=== PATIENT | male | born 1980 | race Caucasian/White ===

== ENCOUNTER 2016-11-06 06:02 | Observation (INO) | payer MEDICAID, OTHER ==
[2016-11-06] VITALS (7 sets, daily range): BP systolic 112–138; BP diastolic 64–81; PULSE 67–93; RESP 16–18; TEMP 97.8–98.1; O2SAT 97–99
[~2016-11-06] VITALS: Ht 170.2 cm; Wt 92.3 kg
[~2016-11-06 06:02] MED LIST: ACIP20TA19; CLIN150 PO; HYDR-3133 PO; PRED20 PO
[2016-11-06] MEDS ORDERED: cefTRIAXone INJ 1,000 MG in SODIUM CHLORIDE 0.9% INJ 100 ML IV ONE (06:45)
[2016-11-06] MEDS ORDERED: SODIUM CHLOR 0.9% 1000 ML INJ 1,000 ML IV ONE (06:45)
[2016-11-06] MEDS ORDERED: KETOROLAC TROMETHAMINE 30 MG/ML (IVP) VIAL IV PUSH ONE (06:45)
[2016-11-06 07:08] LABS: BASOPHIL % 0.3 % (0.0-2.0); EOSINOPHIL # 0.2 TH/MM3 (0-0.4); EOSINOPHIL % 2.9 % (0.0-4.0); HEMATOCRIT 45.8 % (39.0-51.0); HEMO FLAGS DIFF FINAL; LYMPH % 19.2 % (9.0-44.0); LYMPHOCYTE # 1.2 TH/MM3 (1.0-4.8); MEAN CELL VOLUME 83.3 FL (80.0-100.0); MEAN CORPUSCULAR HGB CONC 33.6 % (32.0-36.0); MONO % 11.2 % (0.0-8.0); NEUT % 66.4 % (16.0-70.0); PLATELET COUNT 328 TH/MM3 (150-450); RED CELL DISTRIBUTION WIDTH 12.4 % (11.6-17.2); WHITE BLOOD COUNT 6.1 TH/MM3 (4.0-11.0)
[2016-11-06 07:19] LABS: ANION GAP 8 MEQ/L (5-15); BICARBONATE 28.7 MEQ/L (21.0-32.0); BLOOD UREA NITROGEN 14 MG/DL (7-18); CHLORIDE 98 MEQ/L (98-107); GLOMERULAR FILTRATION RATE 87 ML/MIN (>89); POTASSIUM 4.1 MEQ/L (3.5-5.1); SODIUM (NA) 135 MEQ/L (136-145)
[2016-11-06 07:21] LABS: ALKALINE PHOSPHATASE 99 U/L (45-117); ALT (GPT) 38 U/L (12-78); AST (GOT) 19 U/L (15-37); TOTAL BILIRUBIN ADULT 0.5 MG/DL (0.2-1.0)
--- NOTE | 2016-11-06 07:31 | PD ---
HPI Chief Complaint: Skin Problem Time Seen by Provider: 06:16 Travel History International Travel<30 days: No Contact w/Intl Traveler<30days: No Traveled to known affect area: No History of Present Illness HPI The patient is a 36 year old male who presents to the [facility] emergency department with a history of reportedly having a problem with recurrent chancroid since 2001. He reports that initially it was occurring once every 1- 2 years, however recently over the last year he has had 3-4 episodes of outbreaks. He reports that normally it is a rash that develops in the genital area and buttock area. However, since Friday his symptoms have been slightly different. In addition to having lesions in the genital area and gluteal full, the patient also has vesicle formation between his fingers, on his toes, and areas of ulceration on his lips and inside his mouth. He reports that it is very painful. He reports that his usual pain medicine for chronic back pain has not been helping. The patient reports that approximately 3 weeks ago he was seen by an infectious disease doctor regarding this. He reports that a thorough workup was done including laboratory studies, cultures of the area. The patient reports that all of the testing came back negative. He reports he was tested for HIV and syphilis which was negative. He reports that the infectious disease doctor thought that it may be related to a yeast or fungal infection. However, he did treat the patient with an injection of 250 mg of IM Rocephin at that time and the symptoms resolved. The patient reports that it recurred again on Friday and he did call his infectious disease doctor. The infectious disease doctor started him on oral Lamisil and topical Lamisil. The patient reports that the symptoms weren't improving and then on Friday he went to a local urgent care center and was given azithromycin 1 g by mouth 1. He reports that the symptoms have not resolved. The patient reports that he did have diarrhea on Friday and Friday, however this resolved. He reports that he had loose stools 3-4 times per day. He denies having any blood in his stool. The patient denies having any new sexual partners. The patient's partner is currently at the bedside. The patient denies any recent fevers, cough, congestion, neck pain, chest pain, shortness of breath, abdominal pain, vomiting , urinary symptoms, or neurologic symptoms. PFSH Past Medical History Narrative Medical The patient's past medical history is reportedly significant for chronic back pain, history of chancroid, history of MRSA skin infections, history of HSV-2, history of Caban's esophagitis Diminished Hearing: No Medical other: Yes (BARRETTS ESOPHAGUS) Integumentary: Yes (CHANKROID, HERPES TYPE II) Past Surgical History Narrative Surgical The patient's past surgical history is significant for an appendectomy. Appendectomy: Yes Social History Alcohol Use: Yes (2X/WK) Tobacco Use: No Substance Use: No Allergies-Medications (Allergen,Severity, Reaction): Coded Allergies: Sulfa (Verified Allergy, Intermediate, HIVES, 11/06/16) Doxycycline (Verified Allergy, Unknown, 11/06/16) Reported Meds & Prescriptions Reported Meds & Active Scripts Active Cleocin (Clindamycin HCl) 150 Mg Cap 1 Tab PO Q6 10 Days Atarax (Hydroxyzine HCl) 25 Mg Tab 25 Mg PO Q8HPRN Deltasone (Prednisone) 20 Mg Tab 20 Mg PO BID Reported Aciphex (Rabeprazole Sodium) 20 Mg Tabdr 0 UNKNOWN DOSE Review of Systems Except as stated in HPI: all other systems reviewed are Neg General / Constitutional: No: Fever Eyes: No: Visual changes HENT: Positive: Sore Throat, No: Headaches Cardiovascular: No: Chest Pain or Discomfort Respiratory: No: Shortness of Breath Gastrointestinal: Positive: Diarrhea, Changes in Bowel Habits, No: Nausea, Vomiting, Abdominal Pain, Hematochezia, Constipation, Indigestion, Loss of Appetite Genitourinary: No: Dysuria Musculoskeletal: No: Pain Skin: Positive Rash Neurologic: No: Weakness Psychiatric: No: Depression Endocrine: No: Polydipsia Hematologic/Lymphatic: No: Easy Bruising Physical Exam Narrative General: The patient is a well-developed well-nourished male, uncomfortable appearing on exam. Head and Neck exam: Head is normocephalic atraumatic. Eyes: Pupils are equal round and reactive to light. Nose: Midline septum with pink mucous membranes Mouth: On examination of the external aspect of his mouth he has areas of superficial ulceration on the upper and lower lips. Dentition unremarkable. Moist mucus membranes. Posterior oropharynx is erythematous. The patient is noted to have on the hard and soft palate mucosa superficial ulceration and desquamation. No tonsillar hypertrophy. Uvula midline. Airway patent. Neck: No palpable lymphadenopathy. No nuchal rigidity. No thyromegaly. Cardiovascular: Regular rate and rhythm without murmurs, gallops, or rubs. Lungs: Clear to auscultation bilaterally. No wheezes, rhonchi, or rales. Abdomen: Soft, without tenderness to palpation in all 4 quadrants of the abdomen. No guarding, rebound, or rigidity. Normal bowel sounds are audible. Extremities: No clubbing, cyanosis, or edema. 2+ pulses in all 4 extremities. Back: No spinous process tenderness to palpation. No costovertebral angle tenderness to palpation. Neurologic Exam: Grossly nonfocal. Skin Exam: On examination of the areas between the patient's fingers the patient is noted to have superficial vesicle formation with an erythematous base on the right hand, and bilateral dorsum of the feet. On examination of the patient's genital area the patient has desquamation with yellow discharge noted, however the patient reports that he applied Vaseline to the area as well as Lamisil. The patient is noted on examination of the buttock area to have between the buttocks in the gluteal fold an area of diffuse erythema. A wound culture of the scrotum was done. Data Data Last Documented VS Vital Signs Date Time Temp Pulse Resp B/P Pulse Ox O2 Delivery O2 Flow Rate FiO2 11/06/16 06:17 93 16 11/06/16 06:04 98.0 138/81 98 Orders Complete Blood Count With Diff (11/06/16 06:32) Comprehensive Metabolic Panel (11/06/16 06:32) C-Reactive Protein (Crp) (11/06/16 06:32) Lipase (11/06/16 06:32) Urinalysis - C+S If Indicated (11/06/16 06:32) Westergren Sedimentation Rate (11/06/16 06:32) Wound Culture And Gram Stain (11/06/16 06:32) Iv Access Insert/Monitor (11/06/16 06:32) Ecg Monitoring (11/06/16 06:32) Oximetry (11/06/16 06:32) Sodium Chlor 0.9% 1000 Ml Inj (Ns 1000 M (11/06/16 06:45) Ketorolac Inj (Toradol Inj) (11/06/16 06:45) Ceftriaxone Inj (Rocephin Inj) (11/06/16 06:45) Labs Laboratory Tests Test 11/06/16 06:55 White Blood Count 6.1 TH/MM3 Red Blood Count 5.50 MIL/MM3 Hemoglobin 15.4 GM/DL Hematocrit 45.8 % Mean Corpuscular Volume 83.3 FL Mean Corpuscular Hemoglobin 28.0 PG Mean Corpuscular Hemoglobin 33.6 % Concent Red Cell Distribution Width 12.4 % Platelet Count 328 TH/MM3 Mean Platelet Volume 7.0 FL Neutrophils (%) (Auto) 66.4 % Lymphocytes (%) (Auto) 19.2 % Monocytes (%) (Auto) 11.2 % Eosinophils (%) (Auto) 2.9 % Basophils (%) (Auto) 0.3 % Neutrophils # (Auto) 4.0 TH/MM3 Lymphocytes # (Auto) 1.2 TH/MM3 Monocytes # (Auto) 0.7 TH/MM3 Eosinophils # (Auto) 0.2 TH/MM3 Basophils # (Auto) 0.0 TH/MM3 CBC Comment DIFF FINAL Differential Comment Sodium Level 135 MEQ/L Potassium Level 4.1 MEQ/L Chloride Level 98 MEQ/L Carbon Dioxide Level 28.7 MEQ/L Anion Gap 8 MEQ/L Blood Urea Nitrogen 14 MG/DL Creatinine 0.97 MG/DL Estimat Glomerular Filtration 87 ML/MIN Rate Random Glucose 108 MG/DL Calcium Level 9.4 MG/DL Total Bilirubin 0.5 MG/DL Aspartate Amino Transf 19 U/L (AST/SGOT) Alanine Aminotransferase 38 U/L (ALT/SGPT) Alkaline Phosphatase 99 U/L C-Reactive Protein 8.30 MG/DL Total Protein 9.0 GM/DL Albumin 4.1 GM/DL Lipase 136 U/L [facility] Medical Decision Making Medical Screen Exam Complete: Yes Emergency Medical Condition: Yes Medical Record Reviewed: Yes Differential Diagnosis Aly-Shoaib syndrome, versus autoimmune disorder such as pemphigoid, staph scalded skin syndrome. Narrative Course During the course of the patients emergency department visit, the patients history, examination, and differential diagnosis were reviewed with the patient. The patient had IV access obtained and blood work sent for analysis. The patient is placed on a monitoring manager with oximetry and blood pressure monitoring. A sedimentation rate was ordered. A wound culture was ordered. The patient was provided normal saline 1 L IV fluid bolus, Rocephin 1 g IV. The patients laboratory studies are pending at the conclusion of my shift. The patient's case was checked out to Dr. Richardson for disposition. Jaky Reyez MD Nov 06, 2016 07:31
--- NOTE | 2016-11-06 07:48 | PD ---
Physical Exam Narrative Received sign out from previous team to follow up labs and disposition. Please refer to Dr. Reyez's note for further details. 36yo M with PMH significant for chronic back pain, HSV 2, chancroid here with worsening skin lesions on his genitals. He has also been having blisters on his hands and feet that is new. Pt also with ulcerations in his upper and lower lips along with desquamation in upper hard palate. Pt is nontoxic appearing. Labs reviewed, no leukocytosis. ESR 8. CMP unremarkable. C- reactive protein is elevated at 8.30. Pt given ceftriaxone, NS IVF and toradol by previous team. Pt reevaluated at bedside and still with significant pain. Will give morphine 4mg IV. Wound culture was sent. Given the oral mucosa involvement, I am concern with Aly Shoaib syndrome although I know have an inciting medication. Will admit pt for observation for pain control and evaluation by infectious disease. ID consult placed. Discussed with Dr. Mas and accepted to medicine service. Data Data Last Documented VS Vital Signs Date Time Temp Pulse Resp B/P Pulse Ox O2 Delivery O2 Flow Rate FiO2 11/06/16 08:02 17 11/06/16 07:30 81 11/06/16 07:30 98.1 120/77 99 Room Air Orders Complete Blood Count With Diff (11/06/16 06:32) Comprehensive Metabolic Panel (11/06/16 06:32) C-Reactive Protein (Crp) (11/06/16 06:32) Lipase (11/06/16 06:32) Urinalysis - C+S If Indicated (11/06/16 06:32) Westergren Sedimentation Rate (11/06/16 06:32) Wound Culture And Gram Stain (11/06/16 06:32) Iv Access Insert/Monitor (11/06/16 06:32) Ecg Monitoring (11/06/16 06:32) Oximetry (11/06/16 06:32) Sodium Chlor 0.9% 1000 Ml Inj (Ns 1000 M (11/06/16 06:45) Ketorolac Inj (Toradol Inj) (11/06/16 06:45) Ceftriaxone Inj (Rocephin Inj) (11/06/16 06:45) Morphine Inj (Morphine Inj) (11/06/16 08:00) Admit Order (Ed Use Only) (11/06/16 08:08) Consult Infectious Disease (11/06/16 ) Labs Laboratory Tests Test 11/06/16 11/06/16 06:54 06:55 Erythrocyte Sedimentation Rate 8 mm/hr White Blood Count 6.1 TH/MM3 Red Blood Count 5.50 MIL/MM3 Hemoglobin 15.4 GM/DL Hematocrit 45.8 % Mean Corpuscular Volume 83.3 FL Mean Corpuscular Hemoglobin 28.0 PG Mean Corpuscular Hemoglobin 33.6 % Concent Red Cell Distribution Width 12.4 % Platelet Count 328 TH/MM3 Mean Platelet Volume 7.0 FL Neutrophils (%) (Auto) 66.4 % Lymphocytes (%) (Auto) 19.2 % Monocytes (%) (Auto) 11.2 % Eosinophils (%) (Auto) 2.9 % Basophils (%) (Auto) 0.3 % Neutrophils # (Auto) 4.0 TH/MM3 Lymphocytes # (Auto) 1.2 TH/MM3 Monocytes # (Auto) 0.7 TH/MM3 Eosinophils # (Auto) 0.2 TH/MM3 Basophils # (Auto) 0.0 TH/MM3 CBC Comment DIFF FINAL Differential Comment Sodium Level 135 MEQ/L Potassium Level 4.1 MEQ/L Chloride Level 98 MEQ/L Carbon Dioxide Level 28.7 MEQ/L Anion Gap 8 MEQ/L Blood Urea Nitrogen 14 MG/DL Creatinine 0.97 MG/DL Estimat Glomerular Filtration 87 ML/MIN Rate Random Glucose 108 MG/DL Calcium Level 9.4 MG/DL Total Bilirubin 0.5 MG/DL Aspartate Amino Transf 19 U/L (AST/SGOT) Alanine Aminotransferase 38 U/L (ALT/SGPT) Alkaline Phosphatase 99 U/L C-Reactive Protein 8.30 MG/DL Total Protein 9.0 GM/DL Albumin 4.1 GM/DL Lipase 136 U/L [facility] Supervised Visit with SELVIN: No Diagnosis Primary Impression: Skin lesions Admitting Information Admitting Physician Requests: Soniya Gautam DO Nov 06, 2016 07:48
[2016-11-06] MEDS ORDERED: MORPHINE SULFATE 4 MG/ML INJ IV PUSH ONE (08:00)
[2016-11-06 09:31] LABS: BLOOD, URINE NEG (NEG); GLUCOSE,URINE NEG (NEG); KETONE, URINE NEG (NEG); NITRITE,URINE NEG (NEG); PH, URINE 6.5 (5.0-8.5); URINE COLOR YELLOW (YELLW/STRAW)
[2016-11-06 09:32] LABS: COMMENT (UR) CULT NOT INDICATED; CULTURE IF INDICATED CULT NOT INDICATED
[2016-11-06] MEDS ORDERED: SODIUM CHLORIDE 0.9% FLUSH 5 ML FLUSH FLUSH PRN (10:00)
[2016-11-06] MEDS ORDERED: NALOXONE HCL 0.4 MG/ML AMP IV PRN (10:00)
[2016-11-06] MEDS: SODIUM CHLOR 0.9% 1000 ML INJ 1,000 ML IV SCH ×2 (10:23→19:49)
[2016-11-06] MEDS: KETOROLAC TROMETHAMINE 30 MG/ML (IVP) VIAL IVP PRN ×2 (12:06→23:09)
[2016-11-06] MEDS: MORPHINE SULFATE 4 MG/ML INJ IV PRN ×3 (12:07→21:05)
[2016-11-06] MEDS ORDERED: OXYC15TA PO (13:31)
[2016-11-06] MEDS ORDERED: SOMA350T PO (13:31)
[2016-11-06] MEDS ORDERED: OMEP40CA2 PO (13:31)
[2016-11-06] MEDS ORDERED: ZANT300T PO (13:31)
[2016-11-06 15:23] LABS: RHEUMATOID FACTOR TRIGGER LESS THAN 10.0 IU/ML (0.0-14.9)
--- NOTE | 2016-11-06 17:15 | HHI.HP ---
[facility] No Primary Care Physician Admission Diagnosis Skin lesions Diagnoses: Chief Complaint: Skin lesion, with severe pain Travel History International Travel<30 Days: No Contact w/Intl Traveler <30 Da: No Traveled to Known Affected Are: No History of Present Illness 36 years old male with history of HSV 2 presented to the ED with the worsening complain of chancroidd who did have it 12 years ago was since 2001. Patient has been on acyclovir before, he was being worked up for HIV which was negative, however patient stated he never had the lesions as bad as now. This time patient is having spread vesicular lesion of different ages on the penis and scrotum with greenish drainage, patient stated dates extremely painful , also he had erythematous macular lesion all over the body on the chest legs, on the big toes, some on the palm and the sole, he does have herpetic lesion on the lips as well as the palate and under the tongue in the oral mucosa, patient also mentioned some lesions perianal. Patient is not able to tolerate solid food only cold liquid, no fever or chills no abdominal pain diarrhea or constipation no other neurologic symptom. The patient has been following up with infectious disease specialist who recently put him on Lamisil topical and systematic for what it thought to be fungus. I discussed with the ED physician, patient looked too sick to be sent home, he will need parenteral IV fluid with pain medication, with ID consultation Review of Systems Other All 10 systems reviewed and was positive for what is mentioned in history of present illness otherwise negative Past Family Social History Past Medical History chancroid, history of MRSA skin infections, history of HSV-2, history of Caban 's esophagitis Allergies: Coded Allergies: Sulfa (Verified Allergy, Intermediate, HIVES, 11/06/16) Doxycycline (Verified Allergy, Unknown, 11/06/16) Family History Reviewed noncontributory to the current lesion No history of autoimmune disease Social History Drinks occasionally no tobacco or illicit drug abuse Physical Exam Vital Signs Vital Signs Date Time Temp Pulse Resp B/P Pulse Ox O2 Delivery O2 Flow Rate FiO2 11/06/16 16:30 17 11/06/16 15:00 97.8 81 16 122/81 99 Room Air 11/06/16 13:06 16 11/06/16 12:07 98.1 81 16 130/76 99 Room Air 11/06/16 09:03 97.8 77 17 119/76 99 Room Air 11/06/16 08:02 17 11/06/16 07:52 17 11/06/16 07:30 81 17 11/06/16 07:30 98.1 78 17 120/77 99 Room Air 11/06/16 07:00 16 99 Room Air 11/06/16 06:17 93 16 11/06/16 06:04 98.0 93 16 138/81 98 Physical Exam - - GENERAL: This is a well-nourished, well-developed patient, in no apparent distress. SKIN: Multiple vesicular lesion on the penis and scrotum of different ages mostly wet with some greenish drainage, also erythematous macular lesion spread on the toes between the wet, some on the palm and soles HEAD: Atraumatic. Normocephalic. EYES: Pupils equal round and reactive. Extraocular motions intact. No scleral icterus. ENT: Nose without bleeding, or drainage, Airway patent. Multiple herpetic-like ulcers on the lips and the palate and under the tongue and oral mucosa NECK: Trachea midline. Supple CARDIOVASCULAR: Regular rate and rhythm without murmurs, gallops, or rubs. RESPIRATORY: Fair air entry bilaterally. No wheezes, rales, or rhonchi. GASTROINTESTINAL: Abdomen soft, non-tender, nondistended. Positive bowel sounds MUSCULOSKELETAL: Extremities without clubbing, cyanosis, or edema. Pedal pulses appreciated NEUROLOGICAL: Awake and alert. Moves all extremity. Normal speech.no focal neurological deficit Laboratory Laboratory Tests Test 11/06/16 11/06/16 11/06/16 11/06/16 06:54 06:55 09:00 14:30 Erythrocyte Sedimentation Rate 8 White Blood Count 6.1 Red Blood Count 5.50 Hemoglobin 15.4 Hematocrit 45.8 Mean Corpuscular Volume 83.3 Mean Corpuscular Hemoglobin 28.0 Mean Corpuscular Hemoglobin 33.6 Concent Red Cell Distribution Width 12.4 Platelet Count 328 Mean Platelet Volume 7.0 Neutrophils (%) (Auto) 66.4 Lymphocytes (%) (Auto) 19.2 Monocytes (%) (Auto) 11.2 Eosinophils (%) (Auto) 2.9 Basophils (%) (Auto) 0.3 Neutrophils # (Auto) 4.0 Lymphocytes # (Auto) 1.2 Monocytes # (Auto) 0.7 Eosinophils # (Auto) 0.2 Basophils # (Auto) 0.0 CBC Comment DIFF FINAL Differential Comment Sodium Level 135 Potassium Level 4.1 Chloride Level 98 Carbon Dioxide Level 28.7 Anion Gap 8 Blood Urea Nitrogen 14 Creatinine 0.97 Estimat Glomerular Filtration 87 Rate Random Glucose 108 Calcium Level 9.4 Total Bilirubin 0.5 Aspartate Amino Transf 19 (AST/SGOT) Alanine Aminotransferase 38 (ALT/SGPT) Alkaline Phosphatase 99 C-Reactive Protein 8.30 Total Protein 9.0 Albumin 4.1 Lipase 136 Urine Color YELLOW Urine Turbidity CLEAR Urine pH 6.5 Urine Specific Belcher 1.007 Urine Protein NEG Urine Glucose (UA) NEG Urine Ketones NEG Urine Occult Blood NEG Urine Nitrite NEG Urine Bilirubin NEG Urine Urobilinogen LESS THAN 2.0 Urine Leukocyte Esterase NEG Urine WBC LESS THAN 1 Microscopic Urinalysis Comment CULT NOT INDICATED Rheumatoid Factor Screen NEGATIVE Rheumatoid Factor Titer Date/Time Procedure Status Source Growth 11/06/16 14:30 Gram Stain Received Fluid Other Pending 11/06/16 14:30 Body Fluid Culture Received Fluid Other Pending 11/06/16 14:30 Aerobic Blood Culture Received Blood Peripheral Pending 11/06/16 14:30 Anaerobic Blood Culture Received Blood Peripheral Pending 11/06/16 06:55 Gram Stain - Final Resulted Wound Shoulder 11/06/16 06:55 Wound Culture Resulted Wound Shoulder Pending Result Diagram: 11/06/16 0655 11/06/16 0655 Assessment and Plan Assessment and Plan 36 years old male admitted with Severe diffuse herpetic-like skin lesions on the genital and oropharynx surface rule out herpes simplex flareup versus Aly-Shoaib syndrome versus Behet disease related lesion Systemic illness due to above History of HSV History of Caban's syndrome Plan: We'll admit for observation She was given 1 dose of Rocephin in the ED Iv fluid, pain management with morphine Magic mouthwash Consult ID ESR, CRP, blood culture Per the patient previously has been tested for HIV, will probably need to repeat HIV testing Will need to repeat HSV titers Further workup per ID Discussed Condition With Patient and his Georges Mas MD Nov 06, 2016 17:15
--- NOTE | 2016-11-06 18:26 | PD.ID.CON ---
History of Present Illness Service Infectious Disease Consult Requested By Reason for Consult Evaluation and Mment of recurrent oral, skin and genital lesions ? scrotal cellulitis. ? Behcets syndrome. Primary Care Physician No Primary Care Physician Diagnoses: History of Present Illness is a 36 year old CM with PMHx of HSV2, Chancroid in 2001 who is admitted with history of recurrent oral lesions, skin lesions, genital ulcers, rectal area ulcers. Patient has been on acyclovir before but stopped it after response. He reports having seen an ID physician in [place] who has done an extensive workup on him and has been treating him for fungal etiology although lesions are herpetic or ulcerative type with areas of pemphigoid skin lesions. Patient reports this time lesions have spread are vesicular of different ages on the penis and scrotum with greenish drainage, patient stated these are extremely painful, also he had erythematous macular lesion all over the body on the chest legs, on the big toes, some on the palm and the sole, he does have herpetic lesion on the lips as well as the palate and under the tongue in the oral mucosa, patient also mentioned some lesions perianal. Patient is not able to tolerate solid food only cold liquid, no fever or chills no abdominal pain diarrhea or constipation no other neurologic symptom. The patient has been following up with infectious disease specialist who recently put him on Lamisil topical and systematic for what it thought to be fungus.Patient looked too sick to be sent home, he was admitted for parenteral IV fluid, pain medication, with ID consultation. Pertinent positives and negatives: Denies any joint pains Denies vision change or floaters etc. Denies any chronic diarrhea although he had diarrhea prior to admission. No FHX of autoimmune diseases, HLA B27 positivity. No FHX of Crohns or Ulcerative Colitis. No FHX of chronic skin infections. ID consulted for evaluation and Mment of recurrent oral, skin and genital lesions ? infectious plus scrotal secondary bacterial cellulitis. Review of Systems Constitutional: DENIES: Diaphoretic episodes, Fatigue, Fever, Weight gain, Weight loss, Chills, Dizziness, Change in appetite, Night Sweats Endocrine: DENIES: Heat/cold intolerance, Polydipsia, Polyuria, Polyphagia Eyes: DENIES: Blurred vision, Diplopia, Eye inflammation, Eye pain, Vision loss , Photosensitivity, Double Vision Ears, nose, mouth, throat: COMPLAINS OF: Oral lesions, Throat pain, DENIES: Tinnitus, Hearing loss, Vertigo, Nasal discharge, Hoarseness, Ear Pain, Running Nose, Epistaxis, Sinus Pain, Toothache, Odynophagia Respiratory: DENIES: Apneas, Cough, Snoring, Wheezing, Hemoptysis, Sputum production, Shortness of breath Cardiovascular: DENIES: Chest pain, Palpitations, Syncope, Dyspnea on Exertion , PND, Lower Extremity Edema, Orthopnea, Claudication Gastrointestinal: COMPLAINS OF: Diarrhea, Difficulty Swallowing, DENIES: Abdominal pain, Black stools, Bloody stools, Constipation, Nausea, Vomiting, Anorexia Genitourinary: COMPLAINS OF: Penile Discharge, Testicular Swelling, DENIES: Sexual dysfunction, Urinary frequency, Urinary incontinence, Urgency, Hematuria , Dysuria, Nocturia, Testicular Pain Musculoskeletal: DENIES: Joint pain, Muscle aches, Stiffness, Joint Swelling, Back pain, Neck pain Integumentary: COMPLAINS OF: Rash, DENIES: Abnormal pigmentation, Nail changes , Pruritus Hematologic/lymphatic: DENIES: Bruising, Lymphadenopathy Immunologic/allergic: DENIES: Eczema, Urticaria Neurologic: DENIES: Abnormal gait, Headache, Localized weakness, Paresthesias, Seizures, Speech Problems, Tremor, Poor Balance Psychiatric: DENIES: Anxiety, Confusion, Mood changes, Depression, Hallucinations, Agitation, Suicidal Ideation, Homicidal Ideation, Delusions Past Family Social History Allergies: Coded Allergies: Sulfa (Verified Allergy, Intermediate, HIVES, 11/06/16) Doxycycline (Verified Allergy, Unknown, 11/06/16) *MDRO Multi-Drug Resistant Organism (Verified Adverse Reaction, Unknown, MRSA, 11/07/16) MRSA (wounds) - 01/10/11 & 03/30/11 Past Medical History chancroid, history of MRSA skin infections, history of HSV-2, history of Caban's esophagitis Past Surgical History Appendectomy Reported Medications Reported Meds & Active Scripts Active Reported Oxycodone (Oxycodone HCl) 15 Mg Tab 15 Mg PO 5 TIMES A DAY Omeprazole 40 Mg Cap 40 Mg PO HS Zantac (Ranitidine HCl) 300 Mg Tab 300 Mg PO HS Soma (Carisoprodol) 350 Mg Tab 350 Mg PO TID Active Ordered Medications Current Medications Medications (Trade) Dose Ordered Sig/Carmen Route Start Time Stop Time Status Last Admin (NS 1000 ml Inj) ,000 ml @ 100 mls/hr Q10H IV 11/06/16 09:49 11/06/16 10:23 (NS Flush) 2 ml UNSCH PRN FLUSH 11/06/16 10:00 (NS Flush) 2 ml BID FLUSH 11/06/16 21:00 11/06/16 21:03 (Toradol Inj) 15 mg Q6H PRN IVP 11/06/16 10:00 11/09/16 09:59 11/06/16 12:06 (Morphine Inj) 2 mg Q4H PRN IV 11/06/16 12:00 11/06/16 21:05 (Narcan Inj) 0.4 mg UNSCH PRN IV 11/06/16 10:00 (Protonix) 40 mg HS PO 11/06/16 21:00 11/06/16 21:37 Ondansetron HCl 4 mg 4 mg Q6HR PRN IV PUSH 11/06/16 21:15 Fluconazole/ Sodium Chloride 100 ml @ 100 mls/hr Q24H IV 11/06/16 23:00 Piperacillin Sod/ Tazobactam Sod 100 ml @ 200 mls/hr Q8H IV 11/07/16 00:00 (Cleocin Inj/NS Inj) 106 ml @ 212 mls/hr Q8H IV 11/06/16 22:00 Family History No FHX of autoimmune diseases, HLA B27 positivity. No FHX of Crohns or Ulcerative Colitis. No FHX of chronic skin infections. Social History Lives with his . Has 4 young children. Occ alcohol No IVDA Physical Exam Vital Signs Vital Signs Date Time Temp Pulse Resp B/P Pulse Ox O2 Delivery O2 Flow Rate FiO2 11/06/16 16:30 17 11/06/16 15:00 97.8 81 16 122/81 99 Room Air 11/06/16 13:06 16 11/06/16 12:07 98.1 81 16 130/76 99 Room Air 11/06/16 09:03 97.8 77 17 119/76 99 Room Air 11/06/16 08:02 17 11/06/16 07:52 17 11/06/16 07:30 81 17 11/06/16 07:30 98.1 78 17 120/77 99 Room Air 11/06/16 07:00 16 99 Room Air 11/06/16 06:17 93 16 11/06/16 06:04 98.0 93 16 138/81 98 Physical Exam GENERAL: This is a well-nourished, well-developed patient, in no apparent distress. SKIN: Multiple bullous, pemphigoid lesions. Areas of nodular non tender lesions on palms of hand. Multiple skin lesions papular, bullous on limbs. HEAD: Atraumatic. Normocephalic. No temporal or scalp tenderness. EYES: Pupils equal round and reactive. Extraocular motions intact. No scleral icterus. No injection or drainage. No lesions in or near canthi of eye. Vision ok. ENT: Nose without bleeding, purulent drainage or septal hematoma. Throat without erythema, tonsillar hypertrophy or exudate. Uvula midline. Airway patent. Oral mucosa at lips and palate with ulcerations noted, few vesicles. NECK: Trachea midline. Supple, nontender, no meningeal signs. CARDIOVASCULAR: HS audible. No murmur appreciated. RESPIRATORY: Clear to auscultation. Breath sounds equal bilaterally. No wheezes , rales, or rhonchi. GASTROINTESTINAL: Abdomen soft, non-tender, nondistended. MUSCULOSKELETAL: Extremities without clubbing, cyanosis, or edema. No joint tenderness, effusion, or edema noted. No calf tenderness. Negative Homans sign bilaterally. NEUROLOGICAL: Awake and alert. Grossly non focal Genitourinary area: penile as well as scrotal discharge : yellow green discharge , erythema, minimal induration noted.The area of induration extends to the buttock area. Psych: ? flat affect. IV line sites with no e/o infection. Laboratory Laboratory Tests Test 11/06/16 11/06/16 11/06/16 11/06/16 06:54 06:55 09:00 14:30 Erythrocyte Sedimentation Rate 8 White Blood Count 6.1 Red Blood Count 5.50 Hemoglobin 15.4 Hematocrit 45.8 Mean Corpuscular Volume 83.3 Mean Corpuscular Hemoglobin 28.0 Mean Corpuscular Hemoglobin 33.6 Concent Red Cell Distribution Width 12.4 Platelet Count 328 Mean Platelet Volume 7.0 Neutrophils (%) (Auto) 66.4 Lymphocytes (%) (Auto) 19.2 Monocytes (%) (Auto) 11.2 Eosinophils (%) (Auto) 2.9 Basophils (%) (Auto) 0.3 Neutrophils # (Auto) 4.0 Lymphocytes # (Auto) 1.2 Monocytes # (Auto) 0.7 Eosinophils # (Auto) 0.2 Basophils # (Auto) 0.0 CBC Comment DIFF FINAL Differential Comment Sodium Level 135 Potassium Level 4.1 Chloride Level 98 Carbon Dioxide Level 28.7 Anion Gap 8 Blood Urea Nitrogen 14 Creatinine 0.97 Estimat Glomerular Filtration 87 Rate Random Glucose 108 Calcium Level 9.4 Total Bilirubin 0.5 Aspartate Amino Transf 19 (AST/SGOT) Alanine Aminotransferase 38 (ALT/SGPT) Alkaline Phosphatase 99 C-Reactive Protein 8.30 Total Protein 9.0 Albumin 4.1 Lipase 136 Urine Color YELLOW Urine Turbidity CLEAR Urine pH 6.5 Urine Specific [place] 1.007 Urine Protein NEG Urine Glucose (UA) NEG Urine Ketones NEG Urine Occult Blood NEG Urine Nitrite NEG Urine Bilirubin NEG Urine Urobilinogen LESS THAN 2.0 Urine Leukocyte Esterase NEG Urine WBC LESS THAN 1 Microscopic Urinalysis Comment CULT NOT INDICATED Rheumatoid Factor Screen NEGATIVE Rheumatoid Factor Titer Date/Time Procedure Status Source Growth 11/06/16 14:30 Gram Stain Worksheet Fluid Other Pending 11/06/16 14:30 Body Fluid Culture Worksheet Fluid Other Pending 11/06/16 14:30 Aerobic Blood Culture Received Blood Peripheral Pending 11/06/16 14:30 Anaerobic Blood Culture Received Blood Peripheral Pending 11/06/16 06:55 Gram Stain - Final Resulted Wound Shoulder 11/06/16 06:55 Wound Culture Resulted Wound Shoulder Pending Result Diagram: 11/06/16 0655 11/06/16 0655 Assessment and Plan Assessment and Plan Recurrent oral lesions, skin lesions, genital and rectal lesions. DDX: Herpetic flare with secondary bacterial infection. Possible secondary fungal infection as well) Behcets syndrome (early stages may not have joint involvement but can have pemphigoid skin lesions) No new medications started does not appear to be Trevin Shoaib syndrome. Scrotal cellulitis Rule out STDs (GC, chlamydia, syphilis, chancroid) Prior h/o chancroid (the current clinical picture cannot be explained in entirety based on chancroid) Prior h/o Herpes genitalis. No prior herpes oral lesions. Recs: Start Zosyn IV Start Clinda IV Start Diflucan IV. Nystatin swish swash Start valtrex ( will assess clinical response after addition of valtrex) May need skin biopsy Check rheum workup. Check ANCA Check HLA B57 Check HSV Check RPR Check GC and Chlamydia Check scrotal wound cultures. Check hepatitis profile and HIV antibody. No steroids unless cleared by ID. Consult urology: scrotal and penile lesions rule out deeper tissue infection CT A/P with contrast: cannot do US scrotum pelvis. Concern for scrotal cellulitis and deeper tissue infection. Follow cultures Follow clinically. Case d.w patient and in detail. Discussed possibilities. Contact isolation (active discharge from genital and rectal area as well as prior h/o MRSA) Deepthi Rosa MD Nov 06, 2016 18:26
[2016-11-06 19:20] LABS: CHLAMYDIA PCR NOT DETECTED (NOT DETECT); NEISSERIA PCR NOT DETECTED (NOT DETECT)
[2016-11-06] MEDS ORDERED: DIATRIZOATE MEGLUM/DIATRIZOATE SOD 9 ML CUP PO ONE (20:30)
[2016-11-06] MEDS: SODIUM CHLORIDE 0.9% FLUSH 5 ML FLUSH FLUSH SCH (21:03)
[2016-11-06] MEDS ORDERED: ONDANSETRON HCL 4 MG/2 ML VIAL IV PUSH PRN (21:15)
[2016-11-06] MEDS: PANTOPRAZOLE SOD 40 MG DELAYED RELEASE TAB PO SCH (21:37)
[2016-11-06] MEDS: CLINDAMYCIN INJ 900 MG in SODIUM CHLORIDE 0.9% INJ 100 ML IV SCH (23:10)
[2016-11-06] MEDS: FLUCONAZOLE 200 MG PREMIX BAG 100 ML IV SCH (23:56)
[2016-11-06] MEDS: valACYclovir HCL 500 MG TAB PO SCH (23:56)
[2016-11-07] MEDS ORDERED: IOHEXOL 350 MG/ML 10 ML VIAL (for RAD DIAG) IV ONE (00:54)
--- NOTE | 2016-11-07 01:04 | RADRPT ---
EXAM DATE/TIME: 11/07/2016 00:49 [facility] COMPARISON: No previous studies available for comparison. INDICATIONS : Abdomen pain - evaluate for abscess. IV CONTRAST: 68 cc Omnipaque 350 (iohexol) IV ORAL CONTRAST: Prescribed oral contrast ingested. RADIATION DOSE: 20.87 CTDIvol (mGy) MEDICAL HISTORY : Herpes. Caban's esphagus SURGICAL HISTORY : None. ENCOUNTER: Initial ACUITY: 2 days PAIN SCALE: 0/10 LOCATION: Abdomen TECHNIQUE: Volumetric scanning of the abdomen and pelvis was performed. Using automated exposure control and ad justment of the mA and/or kV according to patient size, radiation dose was kept as low as reasonably achievable to obtain optimal diagnostic quality images. FINDINGS: LOWER LUNGS: The visualized lower lungs are clear. LIVER: Homogeneous density without lesion. There is no dilation of the biliary tree. No calcified gallston es. SPLEEN: Normal size without lesion. PANCREAS: Within normal limits. KIDNEYS: Normal in size and shape. There is no mass, stone or hydronephrosis. ADRENAL GLANDS: Within normal limits. VASCULAR: There is no aortic aneurysm. BOWEL/MESENTERY: Small hiatal hernia. The small bowel, and colon demonstrate no acute abnormality. There is no free i ntraperitoneal air or fluid. ABDOMINAL WALL: Within normal limits. RETROPERITONEUM: There is no lymphadenopathy. BLADDER: No wall thickening or mass. REPRODUCTIVE: Within normal limits. INGUINAL: There is no lymphadenopathy or hernia. MUSCULOSKELETAL: Within normal limits for patient age. CONCLUSION: Benign CT appearance of the abdomen and pelvis. No evidence of abscess as questioned. Piotr Jaime MD on November 07, 2016 at 0:59 Board Certified Radiologist. This report was verified electronically.
[2016-11-07] MEDS: MORPHINE SULFATE 4 MG/ML INJ IV PRN ×5 (01:17→20:12)
[2016-11-07] MEDS: PIPERACIL-TAZO 4.5 GM PREMIX 100 ML IV SCH ×3 (01:47→17:30)
[2016-11-07] MEDS: CLINDAMYCIN INJ 900 MG in SODIUM CHLORIDE 0.9% INJ 100 ML IV SCH ×3 (05:33→22:50)
[2016-11-07 05:35] VITALS: BP 133/88; PULSE 68; RESP 21; TEMP 98.7; O2SAT 98
[2016-11-07] MEDS: valACYclovir HCL 500 MG TAB PO SCH ×3 (06:00→22:50)
[2016-11-07 08:00] VITALS: BP 131/79; PULSE 62; RESP 18; TEMP 98.1; O2SAT 98
[2016-11-07] MEDS: SODIUM CHLOR 0.9% 1000 ML INJ 1,000 ML IV SCH ×3 (08:00→23:08)
[2016-11-07] MEDS: KETOROLAC TROMETHAMINE 30 MG/ML (IVP) VIAL IVP PRN ×2 (08:35→17:30)
[2016-11-07] MEDS: SODIUM CHLORIDE 0.9% FLUSH 5 ML FLUSH FLUSH SCH ×2 (09:00→20:11)
[2016-11-07] MEDS: NYSTAT/DIPHENHY/LIDO MOUTHWASH (Adult) 120ML SWISH-SWAL SCH ×4 (09:57→22:51)
[2016-11-07 12:00] VITALS: BP 128/70; PULSE 58; RESP 20; TEMP 98.1; O2SAT 100
[2016-11-07 15:24] VITALS: BP 119/72; PULSE 68; RESP 18; TEMP 97.5; O2SAT 97
--- NOTE | 2016-11-07 16:38 | HHI.PR ---
Subjective Remarks Follow up on systemic dermato- mucosal spread lesion in patient with history of HSV Patient stated his pain and discomfort is slightly better today He feels his inside part of his lips are swollen with soreness of his palate Objective Vitals Vital Signs Date Time Temp Pulse Resp B/P Pulse Ox O2 Delivery O2 Flow Rate FiO2 11/07/16 15:24 97.5 68 18 119/72 97 11/07/16 12:00 98.1 58 20 128/70 100 11/07/16 09:59 18 11/07/16 08:00 98.1 62 18 131/79 98 11/07/16 05:40 18 11/07/16 05:35 98.7 68 21 133/88 98 11/06/16 20:00 98.0 67 18 112/64 97 I/O 11/06/16 11/06/16 11/06/16 11/07/16 11/07/16 11/07/16 07:00 15:00 23:00 07:00 15:00 23:00 Intake Total 200 ml Output Total 400 ml Balance -200 ml Intake Oral 200 ml Output Urine Total 400 ml # Voids 1 2 # Bowel Movements 0 Result Diagram: 11/06/16 0655 11/06/16 0655 Objective Remarks - - GENERAL: This is a well-nourished, well-developed patient, in no apparent distress. SKIN: Multiple vesicular lesion on the penis and scrotum of different ages mostly wet with some greenish drainage, also erythematous macular lesion spread on the toes between the wet, some on the palm and soles HEAD: Atraumatic. Normocephalic. EYES: Pupils equal round and reactive. Extraocular motions intact. No scleral icterus. ENT: Nose without bleeding, or drainage, Airway patent. Multiple herpetic-like ulcers on the lips and the palate and under the tongue and oral mucosa NECK: Trachea midline. Supple CARDIOVASCULAR: Regular rate and rhythm without murmurs, gallops, or rubs. RESPIRATORY: Fair air entry bilaterally. No wheezes, rales, or rhonchi. GASTROINTESTINAL: Abdomen soft, non-tender, nondistended. Positive bowel sounds MUSCULOSKELETAL: Extremities without clubbing, cyanosis, or edema. Pedal pulses appreciated NEUROLOGICAL: Awake and alert. Moves all extremity. Normal speech.no focal neurological deficit A/P Assessment and Plan 36 years old male admitted with Severe diffuse herpetic-like skin lesions on the genital and oropharynx surface rule out herpes simplex flareup with superimposed infection bacterial versus fungal / unlikely Aly-Shoaib syndrome /rule out underlying Behet disease related lesion Systemic illness due to above History of HSV History of Caban's syndrome Plan: Appreciate ID consultation Checking, GC, chlamydia , HIV, HSV 1 and 2, MARK, HLA B-17, ANCA, RPR, hepatitis panel Started Zosyn and clindamycin and Diflucan iv per ID Nystatin swish and swallow Start Valtrex Consult urology Scrotum wound culture ESR, CRP, blood culture Iv fluid, pain management with morphine Magic mouthwash Georges Mas MD Nov 07, 2016 16:38
[2016-11-07 20:07] VITALS: BP 121/86; PULSE 78; RESP 21; TEMP 98.2; O2SAT 97
--- NOTE | 2016-11-07 20:37 | PD.CONS ---
HPI Service Urology Consult Requested By Reason for Consult Scrotal cellulitis, lesions Primary Care Physician No Primary Care Physician Diagnosis: History of Present Illness 36yo male with history of Herpes and multiple skin lesions/ulcers in the scrotum and penis. Patient has had vesicular lesions on his penis and scrotum in the past, however currently reports significant pain with drainage throughout his entire scrotum. He has also developed lesions within his mouth that are painful. He denies any recent sexual contact or STDs. Denies any fevers , chills, N/V. He denies any lower urinary tract symptoms, no dysuria, no hematuria. Review of Systems ROS Limitations: Clinical Condition Constitutional: DENIES: Fever Endocrine: DENIES: Polyuria Eyes: DENIES: Blurred vision, Vision loss Ears, nose, mouth, throat: DENIES: Hearing loss Respiratory: DENIES: Cough Cardiovascular: DENIES: Chest pain Gastrointestinal: DENIES: Abdominal pain Genitourinary: DENIES: Urgency, Hematuria, Dysuria Musculoskeletal: DENIES: Joint pain Integumentary: COMPLAINS OF: Abnormal pigmentation, Rash Hematologic/lymphatic: COMPLAINS OF: Bruising Immunologic/allergic: COMPLAINS OF: Eczema Neurologic: DENIES: Abnormal gait Psychiatric: DENIES: Anxiety, Confusion Past Family Social History Past Medical History chancroid, history of MRSA skin infections, history of HSV-2, history of Caban 's esophagitis Past Surgical History No previous surgeries Reported Medications Reported Meds & Active Scripts Active Reported Oxycodone (Oxycodone HCl) 15 Mg Tab 15 Mg PO 5 TIMES A DAY Omeprazole 40 Mg Cap 40 Mg PO HS Zantac (Ranitidine HCl) 300 Mg Tab 300 Mg PO HS Soma (Carisoprodol) 350 Mg Tab 350 Mg PO TID Allergies: Coded Allergies: Sulfa (Verified Allergy, Intermediate, HIVES, 11/06/16) Doxycycline (Verified Allergy, Unknown, 11/06/16) *MDRO Multi-Drug Resistant Organism (Verified Adverse Reaction, Unknown, MRSA, 11/07/16) MRSA (wounds) - 01/10/11 & 03/30/11 Active Ordered Medications Current Medications Medications (Trade) Dose Ordered Sig/Carmen Route Start Time Stop Time Status Last Admin (NS 1000 ml Inj) 1,000 ml @ 100 mls/hr Q10H IV 11/06/16 09:49 11/07/16 08:00 (NS Flush) 2 ml UNSCH PRN FLUSH 11/06/16 10:00 (NS Flush) 2 ml BID FLUSH 11/06/16 21:00 11/07/16 20:11 (Toradol Inj) 15 mg Q6H PRN IVP 11/06/16 10:00 11/09/16 09:59 11/07/16 17:30 (Morphine Inj) 2 mg Q4H PRN IV 11/06/16 12:00 11/07/16 20:12 (Narcan Inj) 0.4 mg UNSCH PRN IV 11/06/16 10:00 (Protonix) 40 mg HS PO 11/06/16 21:00 11/06/16 21:37 Ondansetron HCl 4 mg 4 mg Q6HR PRN IV PUSH 11/06/16 21:15 Fluconazole/ Sodium Chloride 100 ml @ 100 mls/hr Q24H IV 11/06/16 23:00 11/06/16 23:56 Piperacillin Sod/ Tazobactam Sod 100 ml @ 200 mls/hr Q8H IV 11/07/16 00:00 11/07/16 17:30 (Cleocin Inj/NS Inj) 106 ml @ 212 mls/hr Q8H IV 11/06/16 22:00 11/07/16 15:39 (Magic Mouthwash Adult Liq) 10 ml QID SWISH-SWAL 11/07/16 09:00 11/07/16 18:00 (Valtrex) 500 mg Q8HR PO 11/06/16 23:00 11/07/16 15:33 Family History Reviewed noncontributory to the current lesion No history of autoimmune disease Social History Drinks occasionally no tobacco or illicit drug abuse Physical Exam Vital Signs Vital Signs Date Time Temp Pulse Resp B/P Pulse Ox O2 Delivery O2 Flow Rate FiO2 11/07/16 20:07 98.2 78 21 121/86 97 11/07/16 15:24 97.5 68 18 119/72 97 11/07/16 12:00 98.1 58 20 128/70 100 11/07/16 09:59 18 11/07/16 08:00 98.1 62 18 131/79 98 11/07/16 05:40 18 11/07/16 05:35 98.7 68 21 133/88 98 Physical Exam GENERAL: This is a well-nourished, well-developed patient, in no apparent distress. SKIN: Multiple mouth ulcers HEAD: Atraumatic. Normocephalic. EYES: Pupils equal round and reactive. No scleral icterus. No injection or drainage. ENT: Nose without bleeding, purulent drainage Airway patent. NECK: Trachea midline. CARDIOVASCULAR: Normal pulses, extremities well perfused RESPIRATORY: Nonlabored, equal chest rise GASTROINTESTINAL: Abdomen nondistended. : Scrotal erythema throughout with weeping appearance, tender to palpation, multiple small ulcer noted on penile shaft and glans. Scrotum tender to palpation. Erythema spreads to anus with well demarcated area around anus and scrotum. No evidence of scrotal abscess, no drainable fluid collection. No evidence of nathanael's gangrene. MUSCULOSKELETAL: Extremities without clubbing, cyanosis, or edema NEUROLOGICAL: Awake and alert. Motor and sensory grossly within normal limits. Normal speech. Laboratory Date/Time Procedure Status Source Growth 11/06/16 14:30 Gram Stain - Final Resulted Fluid Other 11/06/16 14:30 Body Fluid Culture - Preliminary Resulted Fluid Other NO GROWTH IN 24 HOURS. 11/06/16 14:30 Aerobic Blood Culture - Preliminary Resulted Blood Peripheral NO GROWTH IN 1 DAY 11/06/16 14:30 Anaerobic Blood Culture - Preliminary Resulted Blood Peripheral NO GROWTH IN 1 DAY Result Diagram: 11/06/16 0655 11/06/16 0655 Imaging Last 72 hours Impressions Abdomen/Pelvis CT 11/07/16 0000 Signed Impressions: Service Date/Time: October 00:49 - CONCLUSION: Benign CT appearance of the abdomen and pelvis. No evidence of abscess as questioned. Piotr Jaime MD Assessment and Plan Problem List: (1) Skin lesions ICD Code: L98.9 Status: Acute Assessment and Plan 36 yo male with erythemetous and painful scrotal and penile lesions -Unclear etiology for his skin leions -No obvious site of infection. No drainable abcess. No evidence of nathanael's gangrene -CT scan reviewed with no obvious abnormalities -Differential includes Cellulities vs Bechet's disease vs autoimmune process, less likely contact dermatitis. -Agree with ID evaluation -No surgical intervention indicated at this time -Please call with questions Dmitri Del Castillo MD Nov 07, 2016 20:37
[2016-11-07] MEDS: PANTOPRAZOLE SOD 40 MG DELAYED RELEASE TAB PO SCH (21:00)
--- NOTE | 2016-11-07 21:08 | HHI.IDPN ---
Subjective Subjective Remarks is a 36 year old CM with PMHx of HSV2, Chancroid in 2001 who is admitted with history of recurrent oral lesions, skin lesions, genital ulcers, rectal area ulcers. Overnight events reviewed. Seems to think his discharge has slowed down. Able to swallow better. Antibiotics Zosyn IV Diflucan IV Clindamycin IV Valtrex IV Lines Line sites with no e/o infection Past Medical History reviewed Allergies: Coded Allergies: Sulfa (Verified Allergy, Intermediate, HIVES, 11/06/16) Doxycycline (Verified Allergy, Unknown, 11/06/16) *MDRO Multi-Drug Resistant Organism (Verified Adverse Reaction, Unknown, MRSA, 11/07/16) MRSA (wounds) - 01/10/11 & 03/30/11 Objective . Vital Signs Date Time Temp Pulse Resp B/P Pulse Ox O2 Delivery O2 Flow Rate FiO2 11/07/16 20:07 98.2 78 21 121/86 97 11/07/16 15:24 97.5 68 18 119/72 97 11/07/16 12:00 98.1 58 20 128/70 100 11/07/16 09:59 18 11/07/16 08:00 98.1 62 18 131/79 98 11/07/16 05:40 18 11/07/16 05:35 98.7 68 21 133/88 98 11/06/16 11/06/16 11/07/16 15:00 23:00 07:00 Intake Total 200 ml Output Total 400 ml Balance -200 ml Intake Oral 200 ml Output Urine Total 400 ml # Voids 1 2 # Bowel Movements 0 . Laboratory Tests Test 11/06/16 11/06/16 06:54 06:55 Erythrocyte Sedimentation Rate 8 mm/hr White Blood Count 6.1 TH/MM3 Red Blood Count 5.50 MIL/MM3 Hemoglobin 15.4 GM/DL Hematocrit 45.8 % Mean Corpuscular Volume 83.3 FL Mean Corpuscular Hemoglobin 28.0 PG Mean Corpuscular Hemoglobin 33.6 % Concent Red Cell Distribution Width 12.4 % Platelet Count 328 TH/MM3 Mean Platelet Volume 7.0 FL Neutrophils (%) (Auto) 66.4 % Lymphocytes (%) (Auto) 19.2 % Monocytes (%) (Auto) 11.2 % Eosinophils (%) (Auto) 2.9 % Basophils (%) (Auto) 0.3 % Neutrophils # (Auto) 4.0 TH/MM3 Lymphocytes # (Auto) 1.2 TH/MM3 Monocytes # (Auto) 0.7 TH/MM3 Eosinophils # (Auto) 0.2 TH/MM3 Basophils # (Auto) 0.0 TH/MM3 CBC Comment DIFF FINAL Differential Comment Laboratory Tests Test 11/06/16 06:55 Sodium Level 135 MEQ/L Potassium Level 4.1 MEQ/L Chloride Level 98 MEQ/L Carbon Dioxide Level 28.7 MEQ/L Anion Gap 8 MEQ/L Blood Urea Nitrogen 14 MG/DL Creatinine 0.97 MG/DL Estimat Glomerular Filtration 87 ML/MIN Rate Random Glucose 108 MG/DL Calcium Level 9.4 MG/DL Total Bilirubin 0.5 MG/DL Aspartate Amino Transf 19 U/L (AST/SGOT) Alanine Aminotransferase 38 U/L (ALT/SGPT) Alkaline Phosphatase 99 U/L C-Reactive Protein 8.30 MG/DL Total Protein 9.0 GM/DL Albumin 4.1 GM/DL Lipase 136 U/L Microbiology Date/Time Procedure Status Source Growth 11/06/16 06:55 Gram Stain - Final Resulted Wound Shoulder 11/06/16 06:55 Wound Culture - Preliminary Resulted Wound Shoulder NO GROWTH IN 24 HOURS. 11/06/16 14:30 Aerobic Blood Culture - Preliminary Resulted Blood Peripheral NO GROWTH IN 1 DAY 11/06/16 14:30 Anaerobic Blood Culture - Preliminary Resulted Blood Peripheral NO GROWTH IN 1 DAY 11/06/16 14:30 Aerobic Blood Culture - Preliminary Resulted Blood Peripheral NO GROWTH IN 1 DAY 11/06/16 14:30 Anaerobic Blood Culture - Preliminary Resulted Blood Peripheral NO GROWTH IN 1 DAY 11/06/16 14:30 Gram Stain - Final Resulted Fluid Other 11/06/16 14:30 Body Fluid Culture - Preliminary Resulted Fluid Other NO GROWTH IN 24 HOURS. Imaging Last Impressions Abdomen/Pelvis CT 11/07/16 0000 Signed Impressions: Service Date/Time: October 00:49 - CONCLUSION: Benign CT appearance of the abdomen and pelvis. No evidence of abscess as questioned. Piotr Jaime MD Physical Exam GENERAL: This is a well-nourished, well-developed patient, in no apparent distress. SKIN: Multiple bullous, pemphigoid lesions. Areas of nodular non tender lesions on palms of hand. Multiple skin lesions papular, bullous on limbs. HEAD: Atraumatic. Normocephalic. No temporal or scalp tenderness. EYES: Pupils equal round and reactive. Extraocular motions intact. No scleral icterus. No injection or drainage. No lesions in or near canthi of eye. Vision ok. ENT: Nose without bleeding, purulent drainage or septal hematoma. Throat without erythema, tonsillar hypertrophy or exudate. Uvula midline. Airway patent. Oral mucosa at lips and palate with ulcerations noted, few vesicles. NECK: Trachea midline. Supple, nontender, no meningeal signs. CARDIOVASCULAR: HS audible. No murmur appreciated. RESPIRATORY: Clear to auscultation. Breath sounds equal bilaterally. No wheezes , rales, or rhonchi. GASTROINTESTINAL: Abdomen soft, non-tender, nondistended. MUSCULOSKELETAL: Extremities without clubbing, cyanosis, or edema. No joint tenderness, effusion, or edema noted. No calf tenderness. Negative Homans sign bilaterally. NEUROLOGICAL: Awake and alert. Grossly non focal Genitourinary area: penile as well as scrotal discharge : yellow green discharge , erythema, minimal induration noted.The area of induration extends to the buttock area. Overall much less discharge and swelling. Remarkable improvement in both oral and genital lesions. No new lesions popping up. Psych: ? flat affect. IV line sites with no e/o infection. Assessment & Plan Remarks Recurrent oral lesions, skin lesions, genital and rectal lesions. DDX: Herpetic flare with secondary bacterial infection. Possible secondary fungal infection as well) Behcets syndrome (early stages may not have joint involvement but can have pemphigoid skin lesions) No new medications started does not appear to be Trevin Shoaib syndrome. Scrotal cellulitis Rule out STDs (GC, chlamydia, syphilis, chancroid) Prior h/o chancroid (the current clinical picture cannot be explained in entirety based on chancroid) Prior h/o Herpes genitalis. No prior herpes oral lesions. Recs: DC Zosyn IV Continue Clinda IV Continue Diflucan IV. (will switch to oral in am) Continue Nystatin swish swash Able to swallow better today: will advance diet to soft diet. Continue valtrex ( will assess clinical response after addition of valtrex) Hold off on skin biopsy as clinically improving. Follow ANCA, Rheum workup, HLA B57 Follow HSV, RPR negative Negative GC and Chlamydia Follow scrotal wound cultures: negative so far. Check hepatitis profile and HIV antibody. No steroids unless cleared by ID Deepthi Rosa MD Nov 07, 2016 21:08
[2016-11-08] VITALS: BP 128/78; PULSE 57; RESP 18; TEMP 98; O2SAT 97
[2016-11-08] MEDS: FLUCONAZOLE 200 MG PREMIX BAG 100 ML IV SCH (00:05)
[2016-11-08] MEDS: KETOROLAC TROMETHAMINE 30 MG/ML (IVP) VIAL IVP PRN ×3 (00:05→14:55)
[2016-11-08 04:00] VITALS: BP 142/74; PULSE 87; RESP 18; TEMP 98; O2SAT 97
[2016-11-08] MEDS: valACYclovir HCL 500 MG TAB PO SCH ×3 (05:30→21:12)
[2016-11-08] MEDS: MORPHINE SULFATE 4 MG/ML INJ IV PRN ×2 (05:30→10:55)
[2016-11-08] MEDS: CLINDAMYCIN INJ 900 MG in SODIUM CHLORIDE 0.9% INJ 100 ML IV SCH ×3 (05:30→21:13)
[2016-11-08 08:00] VITALS: BP 138/85; PULSE 61; RESP 18; TEMP 98.5; O2SAT 96
[2016-11-08] MEDS: SODIUM CHLORIDE 0.9% FLUSH 5 ML FLUSH FLUSH SCH ×2 (08:13→21:00)
[2016-11-08] MEDS: NYSTAT/DIPHENHY/LIDO MOUTHWASH (Adult) 120ML SWISH-SWAL SCH ×4 (08:13→21:12)
[2016-11-08 11:40] VITALS: BP 130/78; PULSE 68; RESP 18; TEMP 97.8; O2SAT 95
[2016-11-08] MEDS: SODIUM CHLOR 0.9% 1000 ML INJ 1,000 ML IV SCH ×2 (12:30→21:46)
--- NOTE | 2016-11-08 14:16 | HHI.IDPN ---
Subjective Subjective Remarks is a 36 year old CM with PMHx of HSV2, Chancroid in 2001 who is admitted with history of recurrent oral lesions, skin lesions, genital ulcers, rectal area ulcers. Overnight events reviewed. Seems to think his discharge has slowed down. Able to swallow better. No fever No rash Had a BM soft x 1 Overall feels slightly better. Still has discomfort and pain in scrotal region. Antibiotics Zosyn IV Diflucan IV Clindamycin IV Valtrex IV Lines Line sites with no e/o infection Past Medical History reviewed Allergies: Coded Allergies: Sulfa (Verified Allergy, Intermediate, HIVES, 11/06/16) Doxycycline (Verified Allergy, Unknown, 11/06/16) *MDRO Multi-Drug Resistant Organism (Verified Adverse Reaction, Unknown, MRSA, 11/07/16) MRSA (wounds) - 01/10/11 & 03/30/11 Objective . Vital Signs Date Time Temp Pulse Resp B/P Pulse Ox O2 Delivery O2 Flow Rate FiO2 11/08/16 11:40 97.8 68 18 130/78 95 11/08/16 08:00 98.5 61 18 138/85 96 11/08/16 05:41 18 11/08/16 04:00 98.0 87 18 142/74 97 11/08/16 01:38 18 11/08/16 00:00 98.0 57 18 128/78 97 11/07/16 20:07 98.2 78 21 121/86 97 11/07/16 15:24 97.5 68 18 119/72 97 11/07/16 11/07/16 11/08/16 15:00 23:00 07:00 Intake Total 480 ml Balance 480 ml Intake Oral 480 ml # Voids 2 # Bowel Movements 1 . Microbiology Date/Time Procedure Status Source Growth 11/06/16 06:55 Gram Stain - Final Complete Wound Shoulder 11/06/16 06:55 Wound Culture - Final Complete Wound Shoulder HEAVY GROWTH NORMAL SKIN RYLEE... 11/06/16 14:30 Aerobic Blood Culture - Preliminary Resulted Blood Peripheral NO GROWTH IN 2 DAYS 11/06/16 14:30 Anaerobic Blood Culture - Preliminary Resulted Blood Peripheral NO GROWTH IN 2 DAYS 11/06/16 14:30 Aerobic Blood Culture - Preliminary Resulted Blood Peripheral NO GROWTH IN 2 DAYS 11/06/16 14:30 Anaerobic Blood Culture - Preliminary Resulted Blood Peripheral NO GROWTH IN 2 DAYS 11/06/16 14:30 Gram Stain - Final Resulted Fluid Other 11/06/16 14:30 Body Fluid Culture - Preliminary Resulted Fluid Other NO GROWTH IN 48 HOURS. Imaging Last Impressions Abdomen/Pelvis CT 11/07/16 0000 Signed Impressions: Service Date/Time: October 00:49 - CONCLUSION: Benign CT appearance of the abdomen and pelvis. No evidence of abscess as questioned. Piotr Jaime MD Physical Exam GENERAL: This is a well-nourished, well-developed patient, in no apparent distress. SKIN: Multiple bullous, pemphigoid lesions. Areas of nodular non tender lesions on palms of hand. Multiple skin lesions papular, bullous on limbs. HEAD: Atraumatic. Normocephalic. No temporal or scalp tenderness. EYES: Pupils equal round and reactive. Extraocular motions intact. No scleral icterus. No injection or drainage. No lesions in or near canthi of eye. Vision ok. ENT: Nose without bleeding, purulent drainage or septal hematoma. Throat without erythema, tonsillar hypertrophy or exudate. Uvula midline. Airway patent. Oral mucosa at lips and palate with ulcerations noted, few vesicles. NECK: Trachea midline. Supple, nontender, no meningeal signs. CARDIOVASCULAR: HS audible. No murmur appreciated. RESPIRATORY: Clear to auscultation. Breath sounds equal bilaterally. No wheezes , rales, or rhonchi. GASTROINTESTINAL: Abdomen soft, non-tender, nondistended. MUSCULOSKELETAL: Extremities without clubbing, cyanosis, or edema. No joint tenderness, effusion, or edema noted. No calf tenderness. Negative Homans sign bilaterally. NEUROLOGICAL: Awake and alert. Grossly non focal Genitourinary area: penile as well as scrotal discharge : yellow green discharge , erythema, minimal induration noted.The area of induration extends to the buttock area. Overall much less discharge and swelling. Remarkable improvement in both oral and genital lesions. No new lesions popping up. Psych: ? flat affect. IV line sites with no e/o infection. Assessment & Plan Remarks Recurrent oral lesions, skin lesions, genital and rectal lesions. DDX: Herpetic flare with secondary bacterial infection. Possible secondary fungal infection as well): most likely explanation. Behcets syndrome (early stages may not have joint involvement but can have pemphigoid skin lesions): will order tests to rule out or rule in. Needs Immunology outpt : d/w patient. No new medications started does not appear to be Trevin Shoaib syndrome. Scrotal cellulitis Rule out STDs (GC, chlamydia, syphilis, chancroid) Prior h/o chancroid (the current clinical picture cannot be explained in entirety based on chancroid) Prior h/o Herpes genitalis. No prior herpes oral lesions. Recs: Continue Clinda IV Continue Diflucan change to oral. Continue Nystatin swish swash Able to swallow better today: advanced diet to soft diet. Continue valtrex Hold off on skin biopsy as clinically improving. Today clinical exam showed further improvement. Follow ANCA, Rheum workup, HLA B57 HSV II positive RPR negative Negative GC and Chlamydia Follow scrotal wound cultures: negative so far. Hepatitis profile and HIV antibody negative. No steroids unless cleared by ID Behcets syndrome (early stages may not have joint involvement but can have pemphigoid skin lesions): will order tests to rule out or rule in. Needs Immunology outpt : d/w patient. d/w will see patient next on Friday. Please call me sooner if any change in clinical condition. Will need new ID MD in [place] on follow up. Time total spent in excess of 40 mins. reviewed literature. Critical thinking and decision making. Deepthi Rosa MD Nov 08, 2016 14:16
--- NOTE | 2016-11-08 15:35 | HHI.PR ---
Subjective Remarks patient feeling slightly better in his groin area on the scrotum as well as his oral cavity He doesn't understand why we are not checking her for H,Ducri No fever, discussed with who recommended continuing antibiotic and antifungal and monitoring over the weekend Objective Vitals Vital Signs Date Time Temp Pulse Resp B/P Pulse Ox O2 Delivery O2 Flow Rate FiO2 11/08/16 11:40 97.8 68 18 130/78 95 11/08/16 08:00 98.5 61 18 138/85 96 11/08/16 05:41 18 11/08/16 04:00 98.0 87 18 142/74 97 11/08/16 01:38 18 11/08/16 00:00 98.0 57 18 128/78 97 11/07/16 20:07 98.2 78 21 121/86 97 I/O 11/07/16 11/07/16 11/07/16 11/08/16 11/08/16 11/08/16 07:00 15:00 23:00 07:00 15:00 23:00 Intake Total 480 ml Balance 480 ml Intake Oral 480 ml # Voids 2 2 # Bowel Movements 1 Result Diagram: 11/06/1655 11/06/16 0655 Objective Remarks - - GENERAL: This is a well-nourished, well-developed patient, in no apparent distress. SKIN: Multiple vesicular lesion on the penis and scrotum of different ages mostly wet with some greenish drainage, also erythematous macular lesion spread on the toes between the wet, some on the palm and soles HEAD: Atraumatic. Normocephalic. EYES: Pupils equal round and reactive. Extraocular motions intact. No scleral icterus. ENT: Nose without bleeding, or drainage, Airway patent. Multiple herpetic-like ulcers on the lips and the palate and under the tongue and oral mucosa NECK: Trachea midline. Supple CARDIOVASCULAR: Regular rate and rhythm without murmurs, gallops, or rubs. RESPIRATORY: Fair air entry bilaterally. No wheezes, rales, or rhonchi. GASTROINTESTINAL: Abdomen soft, non-tender, nondistended. Positive bowel sounds MUSCULOSKELETAL: Extremities without clubbing, cyanosis, or edema. Pedal pulses appreciated NEUROLOGICAL: Awake and alert. Moves all extremity. Normal speech.no focal neurological deficit A/P Assessment and Plan 36 years old male admitted with Severe diffuse herpetic-like skin lesions on the genital and oropharynx surface rule out herpes simplex flareup with superimposed infection bacterial versus fungal / unlikely Aly-Shoaib syndrome /rule out underlying Behet disease related lesion Systemic illness due to above History of HSV History of Caban's syndrome Plan: discussed with , we'll continue with antibacterial antifungal review GC, chlamydia , HIV, HSV 1 and 2, MARK, HLA B-17, ANCA, RPR, hepatitis panel, mostly unremarkable except positive HSV-2 continue Zosyn and clindamycin and Diflucan iv per ID Nystatin swish and swallow continue Valtrex Consult urology Scrotum wound culture ESR, CRP, blood culture Iv fluid, pain management with morphine Georges Mas MD Nov 08, 2016 15:35
[2016-11-08] MEDS ORDERED: ACETAMINOPHEN/HYDROcodone 325 MG/5 MG TAB PO PRN (15:45)
[2016-11-08 16:00] VITALS: BP 137/86; PULSE 62; RESP 18; TEMP 99; O2SAT 95
[2016-11-08] MEDS: ACETAMINOPHEN/HYDROcodone 325 MG/5 MG TAB PO PRN ×2 (17:02→21:12)
[2016-11-08 19:29] VITALS: BP 119/70; PULSE 69; RESP 18; TEMP 96.8; O2SAT 96
[2016-11-08] MEDS ORDERED: PRILOSEC 40 MG PO SCH (21:00)
[2016-11-09] VITALS: BP 154/90; PULSE 56; RESP 18; TEMP 96.6; O2SAT 97
[2016-11-09] MEDS: ACETAMINOPHEN/HYDROcodone 325 MG/5 MG TAB PO PRN ×6 (02:10→22:22)
[2016-11-09 04:18] VITALS: BP 131/76; PULSE 52; RESP 18; TEMP 96.2; O2SAT 93
[2016-11-09] MEDS: CLINDAMYCIN INJ 900 MG in SODIUM CHLORIDE 0.9% INJ 100 ML IV SCH ×3 (05:06→22:21)
[2016-11-09] MEDS: valACYclovir HCL 500 MG TAB PO SCH ×3 (05:06→22:21)
[2016-11-09] MEDS: SODIUM CHLORIDE 0.9% FLUSH 5 ML FLUSH FLUSH SCH ×2 (09:00→22:21)
[2016-11-09] MEDS: NYSTAT/DIPHENHY/LIDO MOUTHWASH (Adult) 120ML SWISH-SWAL SCH ×4 (09:50→21:00)
[2016-11-09] MEDS: FLUCONAZOLE 100 MG TAB PO SCH (09:50)
[2016-11-09] MEDS: SODIUM CHLOR 0.9% 1000 ML INJ 1,000 ML IV SCH ×2 (09:50→17:49)
--- NOTE | 2016-11-09 13:42 | HHI.PR ---
Subjective Remarks Patient feeling more comfortable eating and drinking today, groin lesion drying out Afebrile, no chest pain or short of breath Continue current management , ID to follow up tomorrow or on Friday Patient asked me if we tested him for HPV, he stated he had a girlfriend who has a before Objective Vitals Vital Signs Date Time Temp Pulse Resp B/P Pulse Ox O2 Delivery O2 Flow Rate FiO2 11/09/16 05:45 14 11/09/16 04:18 96.2 52 18 131/76 93 11/09/16 00:00 96.6 56 18 154/90 97 11/08/16 19:29 96.8 69 18 119/70 96 11/08/16 16:00 99.0 62 18 137/86 95 Result Diagram: 11/06/1665411/06/16654 Objective Remarks - - GENERAL: This is a well-nourished, well-developed patient, in no apparent distress. SKIN: Multiple vesicular lesion on the penis and scrotum of different ages mostly wet with some greenish drainage, also erythematous macular lesion spread on the toes between the wet, some on the palm and soles HEAD: Atraumatic. Normocephalic. EYES: Pupils equal round and reactive. Extraocular motions intact. No scleral icterus. ENT: Nose without bleeding, or drainage, Airway patent. Multiple herpetic-like ulcers on the lips and the palate and under the tongue and oral mucosa NECK: Trachea midline. Supple CARDIOVASCULAR: Regular rate and rhythm without murmurs, gallops, or rubs. RESPIRATORY: Fair air entry bilaterally. No wheezes, rales, or rhonchi. GASTROINTESTINAL: Abdomen soft, non-tender, nondistended. Positive bowel sounds MUSCULOSKELETAL: Extremities without clubbing, cyanosis, or edema. Pedal pulses appreciated NEUROLOGICAL: Awake and alert. Moves all extremity. Normal speech.no focal neurological deficit A/P Assessment and Plan 36 years old male admitted with Severe diffuse herpetic-like skin lesions on the genital and oropharynx surface rule out herpes simplex flareup with superimposed infection bacterial versus fungal / unlikely Ayl-Shoaib syndrome /rule out underlying Behet disease related lesion Systemic illness due to above History of HSV History of Caban's syndrome Plan: continue with antibacterial antifungal per ID review GC, chlamydia , HIV, HSV 1 and 2, MARK, HLA B-17, ANCA, RPR, hepatitis panel, mostly negative except positive HSV-2 continue Zosyn and clindamycin and Diflucan iv per ID Nystatin swish and swallow continue Valtrex Consult urology Scrotum wound culture negative so far ESR, CRP, blood culture reviewed, negative so far Iv fluid, pain management with morphine Georges Mas MD Nov 09, 2016 13:42
[2016-11-09 14:55] VITALS: BP 158/60; PULSE 60; RESP 18; TEMP 98.2; O2SAT 95
[2016-11-09 14:56] LABS: HSV IGM 1 TITER ND TITER; HSV IGM II TITER ND TITER
[2016-11-09 18:01] VITALS: BP 120/58; PULSE 56; RESP 18; O2SAT 96
[2016-11-09 19:56] LABS: HSV2 IGM IFA NEGATIVE (())
[2016-11-09 20:26] VITALS: BP 125/69; PULSE 58; RESP 20; TEMP 98.7; O2SAT 98
[2016-11-10] VITALS (7 sets, daily range): BP systolic 124–152; BP diastolic 71–86; PULSE 52–76; RESP 18–20; TEMP 97.1–98.7; O2SAT 92–99
[2016-11-10] MEDS: CLINDAMYCIN INJ 900 MG in SODIUM CHLORIDE 0.9% INJ 100 ML IV SCH ×3 (05:09→22:46)
[2016-11-10] MEDS: valACYclovir HCL 500 MG TAB PO SCH ×3 (05:09→22:45)
[2016-11-10] MEDS: ACETAMINOPHEN/HYDROcodone 325 MG/5 MG TAB PO PRN ×4 (05:55→19:44)
[2016-11-10 08:58] LABS: POTASSIUM 3.7 MEQ/L (3.5-5.1)
[2016-11-10] MEDS: FLUCONAZOLE 100 MG TAB PO SCH (10:14)
[2016-11-10] MEDS: NYSTAT/DIPHENHY/LIDO MOUTHWASH (Adult) 120ML SWISH-SWAL SCH ×4 (10:14→19:44)
[2016-11-10] MEDS: SODIUM CHLORIDE 0.9% FLUSH 5 ML FLUSH FLUSH SCH ×2 (10:15→19:46)
[2016-11-10] MEDS: SODIUM CHLOR 0.9% 1000 ML INJ 1,000 ML IV SCH ×3 (10:15→23:40)
--- NOTE | 2016-11-10 18:13 | HHI.PR ---
Subjective Remarks Patient wants to go home, I explained to him that infectious specialist wants to reassess him on Friday He is improving, able to eat, he is continued on antibacterial antifungal and Valtrex Objective Vitals Vital Signs Date Time Temp Pulse Resp B/P Pulse Ox O2 Delivery O2 Flow Rate FiO2 11/10/16 15:30 97.8 55 19 141/86 93 11/10/16 11:08 98.1 52 19 152/86 92 11/10/16 07:46 97.8 59 19 124/71 93 11/10/16 04:55 98.1 59 20 144/79 96 11/10/16 00:24 98.6 59 20 131/82 96 11/09/16 20:26 98.7 58 20 125/69 98 Result Diagram: 11/06/16 0655 11/10/16 0802 Objective Remarks - - GENERAL: This is a well-nourished, well-developed patient, in no apparent distress. SKIN: Multiple vesicular lesion on the penis and scrotum of different ages mostly wet with some greenish drainage, also erythematous macular lesion spread on the toes between the wet, some on the palm and soles HEAD: Atraumatic. Normocephalic. EYES: Pupils equal round and reactive. Extraocular motions intact. No scleral icterus. ENT: Nose without bleeding, or drainage, Airway patent. Multiple herpetic-like ulcers on the lips and the palate and under the tongue and oral mucosa NECK: Trachea midline. Supple CARDIOVASCULAR: Regular rate and rhythm without murmurs, gallops, or rubs. RESPIRATORY: Fair air entry bilaterally. No wheezes, rales, or rhonchi. GASTROINTESTINAL: Abdomen soft, non-tender, nondistended. Positive bowel sounds MUSCULOSKELETAL: Extremities without clubbing, cyanosis, or edema. Pedal pulses appreciated NEUROLOGICAL: Awake and alert. Moves all extremity. Normal speech.no focal neurological deficit A/P Assessment and Plan 11/10/16: Continue to improve, he will be reassessed IID tomorrow, continue antibiotic, antifungal, Valtrex 36 years old male admitted with Severe diffuse herpetic-like skin lesions on the genital and oropharynx surface rule out herpes simplex flareup with superimposed infection bacterial versus fungal / unlikely Aly-Shoaib syndrome /rule out underlying Behet disease related lesion scrotal cellulitis odynophagia due to oral ulcer Systemic illness due to above History of HSV History of Caban's syndrome Plan: continue with antibacterial antifungal per ID review GC, chlamydia , HIV, HSV 1 and 2, MARK, HLA B-17, ANCA, RPR, hepatitis panel, mostly negative except positive HSV-2 continue Zosyn and clindamycin and Diflucan iv per ID Nystatin swish and swallow continue Valtrex Consult urology Scrotum wound culture negative so far ESR, CRP, blood culture reviewed, negative so far Iv fluid, pain management with morphine Georges Mas MD Nov 10, 2016 18:13
[2016-11-11] VITALS: BP 132/79; PULSE 64; RESP 18; TEMP 96.4; O2SAT 95
[2016-11-11 04:00] VITALS: BP 140/78; PULSE 49; RESP 18; TEMP 97.2; O2SAT 95
[2016-11-11] MEDS: valACYclovir HCL 500 MG TAB PO SCH (05:11)
[2016-11-11] MEDS: ACETAMINOPHEN/HYDROcodone 325 MG/5 MG TAB PO PRN ×2 (05:12→10:05)
[2016-11-11] MEDS: CLINDAMYCIN INJ 900 MG in SODIUM CHLORIDE 0.9% INJ 100 ML IV SCH (05:44)
[2016-11-11 07:14] LABS: AUTOMATED NEUTROPHIL # 3.3 TH/MM3 (1.8-7.7); BASOPHIL % 0.9 % (0.0-2.0); EOSINOPHIL # 0.2 TH/MM3 (0-0.4); EOSINOPHIL % 4.4 % (0.0-4.0); HEMATOCRIT 39.1 % (39.0-51.0); HEMO FLAGS DIFF FINAL; LYMPH % 26.2 % (9.0-44.0); LYMPHOCYTE # 1.4 TH/MM3 (1.0-4.8); MEAN CELL VOLUME 82.5 FL (80.0-100.0); MEAN CORPUSCULAR HEMOGLOBIN 27.6 PG (27.0-34.0); MEAN CORPUSCULAR HGB CONC 33.5 % (32.0-36.0); NEUT % 60.5 % (16.0-70.0); PLATELET COUNT 336 TH/MM3 (150-450); RED BLOOD COUNT 4.74 MIL/MM3 (4.50-5.90); RED CELL DISTRIBUTION WIDTH 12.2 % (11.6-17.2); WHITE BLOOD COUNT 5.4 TH/MM3 (4.0-11.0)
[2016-11-11 08:00] VITALS: BP 124/79; PULSE 78; RESP 18; TEMP 99; O2SAT 96
[2016-11-11] MEDS: NYSTAT/DIPHENHY/LIDO MOUTHWASH (Adult) 120ML SWISH-SWAL SCH (08:41)
[2016-11-11] MEDS: FLUCONAZOLE 100 MG TAB PO SCH (08:41)
[2016-11-11] MEDS: SODIUM CHLORIDE 0.9% FLUSH 5 ML FLUSH FLUSH SCH (08:41)
[2016-11-11] MEDS ORDERED: HYDR-3516 PO (10:18)
[2016-11-11] MEDS ORDERED: CLIN150 PO (10:18)
[2016-11-11] MEDS ORDERED: VALT500T PO (10:18)
[2016-11-11] MEDS ORDERED: DIFL100T PO (10:18)
--- NOTE | 2016-11-11 10:25 | HHI.DS ---
Discharge Summary Admission Date Nov 06, 2016 at 08:11 Discharge Date: Nov 11, 2016 Admitting Diagnosis Skin lesions (1) Skin lesions ICD Code: L98.9 (2) HSV-2 (herpes simplex virus 2) infection ICD Code: B00.9 (3) Cellulitis of scrotum ICD Code: N49.2 (4) Odynophagia ICD Code: R13.10 Diagnosis: Secondary Procedures none Brief History - From Admission 36 years old male with history of HSV 2 presented to the ED with the worsening complain of chancroidd who did have it 12 years ago was since 2001. Patient has been on acyclovir before, he was being worked up for HIV which was negative, however patient stated he never had the lesions as bad as now. This time patient is having spread vesicular lesion of different ages on the penis and scrotum with greenish drainage, patient stated dates extremely painful , also he had erythematous macular lesion all over the body on the chest legs, on the big toes, some on the palm and the sole, he does have herpetic lesion on the lips as well as the palate and under the tongue in the oral mucosa, patient also mentioned some lesions perianal. Patient is not able to tolerate solid food only cold liquid, no fever or chills no abdominal pain diarrhea or constipation no other neurologic symptom. The patient has been following up with infectious disease specialist who recently put him on Lamisil topical and systematic for what it thought to be fungus. I discussed with the ED physician, patient looked too sick to be sent home, he will need parenteral IV fluid with pain medication, with ID consultation CBC/BMP: 11/11/16 0630 11/10/16 0802 Significant Findings Laboratory Tests Test 11/11/16 06:30 Mean Platelet Volume 6.8 FL (7.0-11.0) Eosinophils (%) (Auto) 4.4 % (0.0-4.0) PE at Discharge - - GENERAL: This is a well-nourished, well-developed patient, in no apparent distress. SKIN: Multiple vesicular lesion on the penis and scrotum of different ages mostly wet with some greenish drainage, also erythematous macular lesion spread on the toes between the wet, some on the palm and soles HEAD: Atraumatic. Normocephalic. EYES: Pupils equal round and reactive. Extraocular motions intact. No scleral icterus. ENT: Nose without bleeding, or drainage, Airway patent. Multiple herpetic-like ulcers on the lips and the palate and under the tongue and oral mucosa NECK: Trachea midline. Supple CARDIOVASCULAR: Regular rate and rhythm without murmurs, gallops, or rubs. RESPIRATORY: Fair air entry bilaterally. No wheezes, rales, or rhonchi. GASTROINTESTINAL: Abdomen soft, non-tender, nondistended. Positive bowel sounds MUSCULOSKELETAL: Extremities without clubbing, cyanosis, or edema. Pedal pulses appreciated NEUROLOGICAL: Awake and alert. Moves all extremity. Normal speech.no focal neurological deficit Hospital Course 36 years old male admitted with Severe diffuse herpetic-like skin lesions on the genital and oropharynx surface rule out herpes simplex flareup with superimposed infection bacterial versus fungal /rule out underlying Behet disease related lesion,Systemic illness due to above,History of HSV,History of Caban's syndrome pt admitted for observation , ivf , pain mangement , obtained ID consult , started pt on antibacterial antifungal , clinda , diflucan , as well as valtrex , pt showed clinical improvement over the following days , checked GC, chlamydia , HIV, HSV 1 and 2, MARK, HLA B-17, ANCA, RPR, hepatitis panel, mostly negative except positive HSV-2 Nystatin swish and swallow, ESR, CRP, blood culture reviewed negative , cleared on 11/11/16 to be dc by ID on 3 more days of clinda and 2 more days of diflucan , and daily valtrex until pt follow up with ID outpt Pt Condition on Discharge: Fair Discharge Disposition: Discharge Home Discharge Time: <= 30 minutes Discharge Instructions DIET: Follow Instructions for: Heart Healthy Diet Activities you can perform: Weight Bearing as Maggy New Medications: Clindamycin (Cleocin) 150 Mg Cap 450 MG PO Q6HR abx #12 CAP Fluconazole (Diflucan) 100 Mg Tab 100 MG PO DAILY niles #2 TAB Hydrocodone-Acetaminophen (Hydrocodone-Acetaminophen) 5-325 mg Tab 1 TAB PO Q4H PRN pain 3-5 #10 TAB Valacyclovir (Valtrex) 500 Mg Tab 500 MG PO Q8HR HSV2 #90 TAB Georges Mas MD Nov 11, 2016 10:25
--- NOTE | 2016-11-11 11:06 | HHI.IDPN ---
Subjective Subjective Remarks is a 36 year old CM with PMHx of HSV2, Chancroid in 2001 who is admitted with history of recurrent oral lesions, skin lesions, genital ulcers, rectal area ulcers. Overnight events reviewed. Seems to think his lesions have started crusting. Able to swallow better. No fever No rash Had a BM soft x 1 Feels better, wishes to go home. Antibiotics Zosyn IV Diflucan IV Clindamycin IV Valtrex IV Lines Line sites with no e/o infection Past Medical History reviewed Allergies: Coded Allergies: Sulfa (Verified Allergy, Intermediate, HIVES, 11/06/16) Doxycycline (Verified Allergy, Unknown, 11/06/16) *MDRO Multi-Drug Resistant Organism (Verified Adverse Reaction, Unknown, MRSA, 11/07/16) MRSA (wounds) - 01/10/11 & 03/30/11 Objective . Vital Signs Date Time Temp Pulse Resp B/P Pulse Ox O2 Delivery O2 Flow Rate FiO2 11/11/16 08:00 99.0 78 18 124/79 96 11/11/16 04:00 97.2 49 18 140/78 95 11/11/16 00:00 96.4 64 18 132/79 95 11/10/16 20:00 97.1 76 18 129/73 95 11/10/16 18:30 98.7 76 18 138/76 99 11/10/16 15:30 97.8 55 19 141/86 93 11/10/16 11:08 98.1 52 19 152/86 92 11/10/16 11/10/16 11/11/16 15:00 23:00 07:00 Intake Total 440 ml 1185 ml Balance 440 ml 1185 ml Intake Oral 240 ml 480 ml IV Total 200 ml 705 ml # Voids 2 2 . Laboratory Tests Test 11/11/16 06:30 White Blood Count 5.4 TH/MM3 Red Blood Count 4.74 MIL/MM3 Hemoglobin 13.1 GM/DL Hematocrit 39.1 % Mean Corpuscular Volume 82.5 FL Mean Corpuscular Hemoglobin 27.6 PG Mean Corpuscular Hemoglobin 33.5 % Concent Red Cell Distribution Width 12.2 % Platelet Count 336 TH/MM3 Mean Platelet Volume 6.8 FL Neutrophils (%) (Auto) 60.5 % Lymphocytes (%) (Auto) 26.2 % Monocytes (%) (Auto) 8.0 % Eosinophils (%) (Auto) 4.4 % Basophils (%) (Auto) 0.9 % Neutrophils # (Auto) 3.3 TH/MM3 Lymphocytes # (Auto) 1.4 TH/MM3 Monocytes # (Auto) 0.4 TH/MM3 Eosinophils # (Auto) 0.2 TH/MM3 Basophils # (Auto) 0.0 TH/MM3 CBC Comment DIFF FINAL Differential Comment Laboratory Tests Test 11/10/16 08:02 Sodium Level 141 MEQ/L Potassium Level 3.7 MEQ/L Chloride Level 107 MEQ/L Carbon Dioxide Level 26.0 MEQ/L Anion Gap 8 MEQ/L Blood Urea Nitrogen 8 MG/DL Creatinine 0.80 MG/DL Estimat Glomerular Filtration 109 ML/MIN Rate Random Glucose 89 MG/DL Calcium Level 8.6 MG/DL Imaging Last Impressions Abdomen/Pelvis CT 11/07/16 0000 Signed Impressions: Service Date/Time: October 00:49 - CONCLUSION: Benign CT appearance of the abdomen and pelvis. No evidence of abscess as questioned. Piotr Jaime MD Physical Exam GENERAL: This is a well-nourished, well-developed patient, in no apparent distress. HEAD: Atraumatic. Normocephalic. No temporal or scalp tenderness. EYES: Pupils equal round and reactive. Extraocular motions intact. No scleral icterus. No injection or drainage. No lesions in or near canthi of eye. Vision ok. ENT: Nose without bleeding, purulent drainage or septal hematoma. Throat without erythema, tonsillar hypertrophy or exudate. Uvula midline. Airway patent. Oral mucosa at lips and palate with ulcerations noted, few vesicles. NECK: Trachea midline. Supple, nontender, no meningeal signs. CARDIOVASCULAR: HS audible. No murmur appreciated. RESPIRATORY: Clear to auscultation. Breath sounds equal bilaterally. No wheezes , rales, or rhonchi. GASTROINTESTINAL: Abdomen soft, non-tender, nondistended. MUSCULOSKELETAL: Extremities without clubbing, cyanosis, or edema. No joint tenderness, effusion, or edema noted. No calf tenderness. Negative Homans sign bilaterally. NEUROLOGICAL: Awake and alert. Grossly non focal Genitourinary area: Lesions dried except for area under the scrotal sac. Overall 90% improved compared to day 1. Lesions on face, hands crusted. Lesions in mouth almost resolved. IV line sites with no e/o infection. Assessment & Plan Remarks Recurrent oral lesions, skin lesions, genital and rectal lesions. DDX: Herpetic flare with secondary bacterial infection. Possible secondary fungal infection as well): most likely explanation. Behcets syndrome (early stages may not have joint involvement but can have pemphigoid skin lesions): will order tests to rule out or rule in. Needs Immunology outpt : d/w patient. No new medications started does not appear to be Trevin Shoaib syndrome. Scrotal cellulitis Rule out STDs (GC, chlamydia, syphilis, chancroid) Prior h/o chancroid (the current clinical picture cannot be explained in entirety based on chancroid) Prior h/o Herpes genitalis. No prior herpes oral lesions. Recs: Continue Clinda oral for 3 more days. Continue Diflucan oral for 2 more days. Continue Nystatin swish swash Continue valtrex recommend full dose for 1 more week followed by halfway suppressive dose. recommended ID follow up with as outpatient. Patient prefers to go to [place]. HLA B27 negative. HSV II positive RPR negative Negative GC and Chlamydia. Hepatitis profile and HIV antibody negative. Does not appear to be Behcets but rather Herpetic flare with secondary bacterial and fungal infection. Will sign off please call back if any change in clinical condition or questions. Deepthi Rosa MD Nov 11, 2016 11:06
[2016-11-11] MEDS ORDERED: CLINDAMYCIN 150 MG CAP PO SCH (12:00)
[2016-11-11 15:55] LABS: MYELOPEROXIDASE LESS THAN 1.0 AI (<1.0); PROTEINASE-3 LESS THAN 1.0 AI (<1.0)
[2016-11-11 17:54] LABS: THROMBIN TIME FOR LA ND sec (13-19)
[2016-11-11] MEDS ORDERED: CIPR-9 PO (20:59)
== END 2016-11-11 11:18 | disposition home or self-care (01) ==
LOC: NEPE 06:02 → NEDA 08:11 → NEPGCP 16:50 → HOCB 11-10 18:23
PROVIDERS: ADMIT Hospitalist; ATTEND Hospitalist
DX: L98.9 Disorder of the skin and subcutaneous tissue, unspecified (principal); B00.89 Other herpesviral infection; N49.2 Inflammatory disorders of scrotum; R13.11 Dysphagia, oral phase; A57 Chancroid; M54.9 Dorsalgia, unspecified; K22.70 Barrett's esophagus without dysplasia; Z86.14 Personal history of Methicillin resistant Staphylococcus aureus infection
CPT/HCPCS: 74177; 80048; 80053; 80074; 81001; 83690; 85025; 85613; 85652; 85730; 86021; 86140; 86430; 86592; 86695; 86696; 86703; 86812; 87040; 87070; 87205; 87491; 87591; 96365; 96375; 99284; G0378; J0696; J1450; J1885; J2270; J2543; J7030; Q9963; Q9967

== ENCOUNTER 2016-11-11 19:13 | Emergency (ER) | payer MEDICAID ==
[~2016-11-11 19:13] MED LIST changes: +DIFL100T PO; +HYDR-3516 PO; +OMEP40CA2 PO; +OXYC15TA PO; +SOMA350T PO; +VALT500T PO; +ZANT300T PO
[2016-11-11 19:14] VITALS: BP 164/107; PULSE 69; RESP 18; TEMP 98.1; O2SAT 97
--- NOTE | 2016-11-11 20:23 | PD ---
HPI Chief Complaint: Skin Problem Time Seen by Provider: 20:16 Travel History International Travel<30 days: No Contact w/Intl Traveler<30days: No Traveled to known affect area: No History of Present Illness HPI 36-year-old white male presents to emergency department after being discharged earlier today for recurrence and worsening of a rash. He states that they had gave him Rocephin initially in the ER then started him on clindamycin. After going home today he had taken Aleve because he has chronic back pain as well as oxycodone and he feels that this has really exacerbated a rash on his perineum and around his rectum. He also noticed some burning and blistering of his lips. He states that this is a similar type reaction that he's had in the past. He is associated now with the Aleve that he had taken. He does not have any fever or chills. He states that he's been taking his medications as directed. He has a pain management doctor that he sees but does not have a primary care doctor. He states that he had been seeing a infectious disease doctor in [place] but intends to see a new infectious disease doctor in [place]. PFSH Past Medical History Narrative Medical HSV-2, chancroid, herpeticum, chronic back pain Blood Disorders: No Cancer: No Cardiovascular Problems: No Diabetes: No Diminished Hearing: No Endocrine: No Genitourinary: No Neurologic: No Reproductive: No Respiratory: No (SEN'S ESOPHAGUS) Integumentary: Yes (CHANKROID, HERPES TYPE II) Tetanus Vaccination: < 5 Years Past Surgical History Appendectomy: Yes Social History Alcohol Use: Yes (2X/WK) Tobacco Use: No Substance Use: No Allergies-Medications (Allergen,Severity, Reaction): Coded Allergies: Sulfa (Verified Allergy, Intermediate, HIVES, 11/11/16) Doxycycline (Verified Allergy, Unknown, 11/11/16) *MDRO Multi-Drug Resistant Organism (Verified Adverse Reaction, Unknown, MRSA, 11/07/16) MRSA (wounds) - 01/10/11 & 03/30/11 Reported Meds & Prescriptions Reported Meds & Active Scripts Active Hydrocodone-Acetaminophen 5-325 mg Tab 1 Tab PO Q4H PRN Valtrex (Valacyclovir HCl) 500 Mg Tab 500 Mg PO Q8HR Cleocin (Clindamycin HCl) 150 Mg Cap 450 Mg PO Q6HR Diflucan (Fluconazole) 100 Mg Tab 100 Mg PO DAILY Reported Oxycodone (Oxycodone HCl) 15 Mg Tab 15 Mg PO 5 TIMES A DAY Omeprazole 40 Mg Cap 40 Mg PO HS Zantac (Ranitidine HCl) 300 Mg Tab 300 Mg PO HS Soma (Carisoprodol) 350 Mg Tab 350 Mg PO TID Review of Systems Except as stated in HPI: all other systems reviewed are Neg General / Constitutional: No: Fever, Chills HENT: Positive: Other (burning of the lips), No: Sore Throat Cardiovascular: No: Chest Pain or Discomfort, Palpitations Respiratory: No: Cough, Shortness of Breath Gastrointestinal: No: Nausea, Vomiting Genitourinary: No: Dysuria, Hematuria Musculoskeletal: Positive: Arthralgias, Pain (chronic back pain) Skin: Positive Rash Physical Exam Narrative GENERAL: This is a well-nourished, well-developed patient, in no apparent distress. SKIN: Patient has an area of well demarcated erythema in a large plaque involving the buttocks and perineum. It also tracks up and around the groin. This area appears to be new according to the patient. He has healing desquamation and ulceration of the scrotum and penis. This appears to be in the healing stages and does not appear to be acutely infected currently. HEAD: Atraumatic. Normocephalic. EYES: PERRL, EOMI, no discharge or injection. No scleral icterus. EARS: Clear NOSE: Nasal turbinates appear normal. THROAT: Mucosa pink and moist. Airway patent. There is a small healing area of erythema to the hard palate. I see no ulcerations in the intraoral cavity or on the lips. He does complain of a area of burning to the upper and lower lips but no visual lesions seen. NECK: Trachea midline. supple, moves head freely. LUNGS: Clear to auscultation. CV: Regular in rhythm. ABDOMEN: Soft nontender. EXT: No clubbing cyanosis or edema. Data Data Last Documented VS Vital Signs Date Time Temp Pulse Resp B/P Pulse Ox O2 Delivery O2 Flow Rate FiO2 11/11/16 19:14 98.1 69 18 164/107 97 Room Air Orders Ceftriaxone Inj (Rocephin Inj) (11/11/16 21:00) Ciprofloxacin (Cipro) (11/11/16 21:00) [facility] Medical Decision Making Medical Screen Exam Complete: Yes Emergency Medical Condition: Yes Medical Record Reviewed: Yes Differential Diagnosis MDM: High Differential diagnoses: Abscess, folliculitis, cellulitis, lymphangitis, abrasion, contact dermatitis, Trevin Shoaib's Narrative Course I have had Dr. Morin come by and evaluate this patient as well. I suspect that as is more of an autoimmune process. I don't believe that this is a Aly- Shoaib major. This may be a minor. The patient is insistent on getting Rocephin and Cipro. Dr. Morin has agreed to give him Rocephin and Cipro. He's been advised to follow-up with a federal agent and have a definitive skin biopsy. This is dermatitis unspecified rule out autoimmune disorder Diagnosis Primary Impression: dermatitis undetermined etiology rule out autoimmune Patient Instructions: General Instructions Additional Instructions: Rest. Stop Aleve. Do not take Aleve or ibuprofen until evaluated by federal agent. Cipro. Daily wound care with soap and water. Keep clean and dry. Follow-up with a federal agent as soon as possible. Follow-up with your infectious disease doctor in [place]. Return to the ER if problems worsen. Med/Other Pt SpecificInfo: Prescription(s) given Scripts Ciprofloxacin (Cipro)500 Mg [id number] Mg PO BID #14 TAB Prov:Endy Morin MD 11/11/16 Disposition: 01 DISCHARGE HOME Condition: Stable Drew Diaz Nov 11, 2016 20:22
[2016-11-11] MEDS ORDERED: CIPR-9 PO (20:59)
[2016-11-11] MEDS ORDERED: CIPROFLOXACIN 500 MG TAB PO ONE (21:00)
[2016-11-11] MEDS ORDERED: LIDOCAINE HCL 1% 50 ML VIAL INFIL ONE (21:15)
== END 2016-11-11 21:45 | disposition home or self-care (01) ==
LOC: NEPB 19:13
DX: L30.9 Dermatitis, unspecified (principal); G89.29 Other chronic pain; M54.9 Dorsalgia, unspecified
CPT/HCPCS: 96372; 99283; J0696